=== PATIENT | female | born 1950 | race African-American/Black ===

== ENCOUNTER 2017-07-02 15:34 | Emergency (ER) | payer MEDICARE, MEDICAID ==
[~2017-07-02] VITALS: Ht 157.5 cm; Wt 50.0 kg
[~2017-07-02 15:34] MED LIST: AMLO2.5T PO; CYCL5TAB PO; HYDR-2768 PO; LISI-519 PO; METH5TAB4 PO
[2017-07-02 15:38] VITALS: BP 179/106; PULSE 114; RESP 16; TEMP 98.5; O2SAT 97
[2017-07-02 15:52] VITALS: BP 187/110; PULSE 104; RESP 19; O2SAT 98
--- NOTE | 2017-07-02 16:28 | PD ---
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 She reports that she went through menopause and she was 51. For the past 2-3 days she's been having vaginal spotting/brown discharge. Symptoms are mild, no aggravating living factors. She is not sexually active. Denies any itching or pain. Denies any abdominal pain, nausea or vomiting. In addition the patient is complaining of right fifth toe pain. She reports that she stubbed her toe in February 2017 and the toe has been hurting since then. She has not seen her primary care physician about this. Pain is mild, aggravated by walking. No history of diabetes. No other complaints. PFSH Past Medical History Arthritis: Yes Cardiovascular Problems: Yes (HTN) Hypertension: Yes Musculoskeletal: Yes (CHRONIC BACK PAIN) Thyroid Disease: Yes Influenza Vaccination: No ?: Not Tubal Ligation: Yes Past Surgical History Other Surgery: Yes (COLONOSCOPY) Social History Alcohol Use: Yes (BEER OCCASIONALLY) Tobacco Use: Yes (1/2 PPD) Substance Use: Yes (HX COCAINE) Allergies-Medications (Allergen,Severity, Reaction): Coded Allergies: penicillin G (Unverified Allergy, Mild, HIVES, 03/26/17) Reported Meds & Prescriptions Reported Meds & Active Scripts Active Flexeril (Cyclobenzaprine HCl) 5 Mg Tab 5 Mg PO TID Lisinopril 5 Mg Tab 5 Mg PO DAILY Methimazole 5 Mg Tab 5 Mg PO Q8HR Amlodipine Besylate 2.5 mg (Amlodipine Besylate) 2.5 Mg Tab 2.5 Mg PO DAILY Methimazole 5 Mg Tab 5 Mg PO Q8 Hctz (Hydrochlorothiazide) 25 Mg Tab 25 Mg PO DAILY Review of Systems Except as stated in HPI: all other systems reviewed are Neg Physical Exam Narrative GENERAL: Well-nourished female in no acute distress SKIN: Warm and dry. HEAD: Atraumatic. Normocephalic. EYES: Pupils equal and round. No scleral icterus. No injection or drainage. ENT: No nasal bleeding or discharge. Mucous membranes pink and moist. NECK: Trachea midline. No JVD. CARDIOVASCULAR: Regular rate and rhythm. No murmur appreciated. RESPIRATORY: No accessory muscle use. Clear to auscultation. Breath sounds equal bilaterally. GASTROINTESTINAL: Abdomen soft, non-tender, nondistended. Hepatic and splenic margins not palpable. Pelvic examination in the presence of female nurse reveals a small of white discharge with no evidence of blood in the vaginal canal. MUSCULOSKELETAL: Right fifth toe is tender to palpation. The skin is mildly darkened in the right fifth toe but not necrotic in appearance and capillary refill is less than 2 seconds in all digits of the right and left foot. 2+ dorsalis pedis and posterior tibial pulses bilaterally. NEUROLOGICAL: Awake and alert. No obvious cranial nerve deficits. Motor grossly within normal limits. Normal speech. PSYCHIATRIC: Appropriate mood and affect; insight and judgment normal. Data Data Last Documented VS Vital Signs Date Time Temp Pulse Resp B/P (MAP) Pulse Ox O2 Delivery O2 Flow Rate FiO2 07/02/17 15:52 104 19 187/110 (135) 98 Room Air 07/02/17 15:38 98.5 Orders Orders Toe (Min 2vws) (07/02/17 ) Gc And Chlamydia Pcr (07/02/17 16:25) Wet Prep Profile (07/02/17 16:25) Labs Laboratory Tests Test 07/02/17 17:23 Clue Cells (Wet Prep) NONE SEEN Vaginal Trichomonas (Wet Prep) NONE SEEN Vaginal Yeast (Wet Prep) NONE SEEN MDM Medical Decision Making Medical Screen Exam Complete: Yes Emergency Medical Condition: Yes Medical Record Reviewed: Yes Differential Diagnosis Abnormal uterine bleeding, uterine malignancy, vaginosis Narrative Course Physical examination is reassuring. There is small of white discharge noted in the vaginal canal with no evidence of current bleeding. Wet prep was negative. GC probe is pending but highly unlikely given her history. Right toe x-ray is unremarkable. The etiology of her right fifth toe pain and discoloration is unclear but there is no evidence of ischemic process. The patient will be referred for outpatient follow-up with podiatry. Diagnosis Primary Impression: Toe pain, right Additional Impression: Abnormal uterine bleeding Referrals: Cra Officer Primary Care Physician Additional Instructions: Follow up with your primary care physician and sales driver. Return for any emergent medical conditions. Med/Other Pt SpecificInfo: No Change to Meds Disposition: 01 DISCHARGE HOME Condition: Stable Rodríguez Sawyer Jul 02, 2017 16:28
--- NOTE | 2017-07-02 17:09 | RADRPT ---
EXAM DATE/TIME: 07/02/2017 16:50 [facility] COMPARISON: No previous studies available for comparison. INDICATIONS : Right foot, fifth digit pain from unknown injury. MEDICAL HISTORY : None. SURGICAL HISTORY : None. ENCOUNTER: Initial ACUITY: 4 - 6 months PAIN SCORE: 7/10 LOCATION: Right foot, fifth digit. FINDINGS: Examination of the fifth digit of the right foot demonstrates no evidence of fracture or dislocation. No radiopaque foreign bodies are seen. The soft tissues are intact. CONCLUSION: 1. No acute bony abnormality identified. Gomez Hoff MD on July 02, 2017 at 17:05 Board Certified Radiologist. This report was verified electronically.
[2017-07-02 18:56] VITALS: BP 180/100
[2017-07-09] MEDS ORDERED: METR1TAB76 PO (10:40)
== END 2017-07-02 19:13 | disposition home or self-care (01) ==
LOC: NEPD 15:34
DX: M79.674 Pain in right toe(s) (principal); N93.9 Abnormal uterine and vaginal bleeding, unspecified; I10 Essential (primary) hypertension; Z72.0 Tobacco use
CPT/HCPCS: 73660; 87210; 87491; 87591; 99284